=== PATIENT | male | born 1980 ===

== ENCOUNTER 2017-03-17 17:24 | Emergency (ER) | payer OTHER ==
[2017-03-17 17:50] VITALS: RESP 18
--- NOTE | 2017-03-17 18:28 | C.PDOC ---
History Of Present Illness 36 yo male w/PMHx of alcohol abuse come in for evaluation of epigastric, RUQ pain gradually developed since this AM associated with nausea. Pt sts, pain worse with food intake. Otherwise, pt denies fever, chills, headache, dizziness , CP, SOB, dyspnea, diaphoresis, palpitation, vomiting, diarrhea, back pain, UTI sx, denies alcohol use today. Ambulate to ED for evaluation, not in nay apparent distress. Time Seen by Provider: 03/17/17 18:22 Chief Complaint (Nursing): Abdominal Pain History Per: Patient Onset/Duration Of Symptoms: Gradual Past Medical History Reviewed: Historical Data, Nursing Documentation, Vital Signs Vital Signs: Last Vital Signs Temp 97.6 F 03/17/17 18:32 Pulse 93 H 03/17/17 18:32 Resp 18 03/17/17 18:32 BP 136/76 03/17/17 18:32 Pulse Ox 98 03/17/17 18:35 - Medical History PMH: HTN, Pancreatitis Surgical History: Appendectomy Family History: States: Unknown Family Hx - Social History Hx Tobacco Use: No Hx Alcohol Use: Yes Hx Substance Use: No - Immunization History Hx Tetanus Toxoid Vaccination: No Hx Influenza Vaccination: No Hx Pneumococcal Vaccination: No Review Of Systems Except As Marked, All Systems Reviewed And Found Negative. Constitutional: Negative for: Fever, Chills ENT: Negative for: Throat Pain, Throat Swelling Cardiovascular: Negative for: Chest Pain Respiratory: Negative for: Cough, Shortness of Breath, Wheezing Gastrointestinal: Positive for: Nausea, Abdominal Pain. Negative for: Vomiting , Diarrhea, Melena, Hematochezia, Hematemesis Genitourinary: Negative for: Dysuria Musculoskeletal: Negative for: Neck Pain, Back Pain Skin: Negative for: Rash Neurological: Negative for: Altered Mental Status Physical Exam - Physical Exam Appears: Well, Non-toxic, No Acute Distress Skin: Normal Color, Warm, Dry, No Rash Eye(s): bilateral: PERRL Nose: No Discharge Oral Mucosa: Moist, No Drooling Tongue: Normal Appearing Lips: Normal Appearing Throat: No Drooling Neck: Supple Cardiovascular: Rhythm Regular, No Murmur, No JVD Respiratory: No Stridor, No Wheezing Gastrointestinal/Abdominal: Soft, Tenderness (mod RUQ tenderness, mild epigastric and periumbilical), No Distention, No Guarding, No Rebound Back: No CVA Tenderness Extremity: Normal ROM, No Pedal Edema Neurological/Psych: Oriented x3, Normal Speech ED Course And Treatment - Laboratory Results Result Diagrams: 03/17/17 18:42 O2 Sat by Pulse Oximetry: 98 Pulse Ox Interpretation: Normal Progress Note: Blood work, imaging, sx treatment with hydration order. Case discussed with and sign out for further eval/tx in ED. Disposition - Disposition Disposition Time: 18:35 Condition: STABLE Forms: [employer] (Gibraltarian) - Clinical Impression Clinical Impression: Abdominal pain Physician Patient Turnover Patient Signed Over To: Bib Major Handoff Comments: blood work, imaging, re-eval and dispo
[2017-03-17] MEDS ORDERED: Sodium Chloride 0.9% 1,000 ML IV ONE (18:29)
[2017-03-17 18:46] LABS: BASO % 0.5 % (0.0-2.0); EOS # 0.5 K/uL (0.0-0.7); HEMATOCRIT 39.4 % (35.0-51.0); LYMPH # 1.8 K/uL (1.0-4.3); LYMPH % 21.7 % (20.0-40.0); MEAN CELL VOLUME 94.5 fL (80.0-94.0); MEAN CORPUSCULAR HEMOGLOBIN 32.1 pg (27.0-31.0); MEAN PLATELET VOLUME 7.6 fL (7.2-11.7); MONO # 0.9 K/uL (0.0-0.8); MONO % 11.3 % (0.0-10.0); RED CELL DISTRIBUTION WIDTH 16.4 % (11.5-14.5); WHITE BLOOD COUNT 8.3 K/uL (4.8-10.8)
[2017-03-17 18:50] LABS: URINE BILIRUBIN NEGATIVE (NEGATIVE); URINE BLOOD NEGATIVE (NEGATIVE); URINE COLOR Yellow (YELLOW); URINE GLUCOSE (UA) NORMAL (Normal); URINE KETONE NEGATIVE (NEGATIVE); URINE LEUKOCYTE ESTERASE NEG Leu/uL (Negative); URINE PROTEIN NEGATIVE (NEGATIVE); URINE UROBILINOGEN NORMAL mg/dL (0.2-1.0); WBC URINE < 1 /hpf (0-5)
[2017-03-17 18:55] LABS: INR 1.4
[2017-03-17] MEDS ORDERED: Sodium Chloride 0.9% 1,000 ML ONE (18:55)
[2017-03-17 19:04] LABS: CHLORIDE 105 mmol/L (98-107)
[2017-03-17 19:05] LABS: POTASSIUM 3.5 mmol/L (3.6-5.2); SODIUM 139 mmol/L (132-148)
[2017-03-17 19:07] LABS: AMYLASE 92 U/L (30-110); CARBON DIOXIDE 24 mmol/L (22-30); GFR AFRICAN-AMERICAN > 60
[2017-03-17 19:08] LABS: ALB/GLOB RATIO 0.6 (1.0-2.1); ALKALINE PHOSPHATASE 143 U/L (38-126); ALT/SGPT 50 U/L (21-72); AST/SGOT 98 U/L (17-59); BILIRUBIN,TOTAL 1.4 mg/dL (0.2-1.3); BLOOD UREA NITROGEN 4 mg/dL (9-20); CALCIUM 9.1 mg/dl (8.6-10.4); GLUCOSE,RANDOM 106 mg/dL (75-110); TOTAL PROTEIN 9.4 g/dL (6.3-8.3)
[2017-03-17] MEDS ORDERED: Iohexol 240 (50 ml) ONE (19:08)
[2017-03-17 19:09] LABS: ALCOHOL SERUM 118 mg/dl (0-10)
[2017-03-17] MEDS ORDERED: Iohexol 240 (50 ml) PO ONE (19:15)
[2017-03-17] MEDS ORDERED: Iodixanol 320 mg/ml 150 ml Bottle IV ONE (19:29)
--- NOTE | 2017-03-17 22:22 | CT ---
EXAM: CT Abdomen and Pelvis With Intravenous Contrast CLINICAL HISTORY: 36 years old, male; Pain; Abdominal pain; Localized; Right upper quadrant (ruq); Additional info: Ruq/epigstric pain TECHNIQUE: Axial computed tomography images of the abdomen and pelvis with intravenous contrast. All CT scans at this facility use one or more dose reduction techniques, viz.: automated exposure control; ma/kV adjustment per patient size (including targeted exams where dose is matched to indication; i.e. head); or iterative reconstruction technique. Coronal and sagittal reformatted images were created and reviewed. CONTRAST: 100 mL of visipaque 320 administered intravenously. COMPARISON: No relevant prior studies available. FINDINGS: Lower thorax: RML calcified granuloma. ABDOMEN: Liver: Unremarkable. No mass. Gallbladder and bile ducts: Gallbladder distention. Gallstones. No ductal dilation. Pancreas: No ductal dilation. No mass. Spleen: Borderline splenomegaly. Adrenals: No mass. Kidneys and ureters: No mass. No hydronephrosis. Stomach and bowel: No definite mural thickening. No obstruction. Appendix: Appendectomy. PELVIS: Bladder: Unremarkable. Reproductive: Unremarkable as visualized. ABDOMEN and PELVIS: Intraperitoneal space: No significant fluid collection. No free air. Bones/joints: No acute fracture. Soft tissues: Unremarkable. Vasculature: Unremarkable. No aneurysm. Lymph nodes: No pathologically enlarged lymph nodes. IMPRESSION: 1. Gallbladder distention with cholelithiasis. Suggest ultrasound. 2. Incidental/non-acute findings are described above.
--- NOTE | 2017-03-17 23:19 | US ---
EXAM: US Abdomen Limited, Right Upper Quadrant CLINICAL HISTORY: 36 years old, male; Pain; Abdominal pain; Generalized; Additional info: Gallbladder distention with cholelithiasis on CT. TECHNIQUE: Real-time ultrasound of the right upper quadrant with image documentation. COMPARISON: CT - ABD PELVIS PO IV CONTRAST 2017-03-17 21:16 FINDINGS: Liver: Fatty infiltration. Apparent 3.2 x 3.5 x 3.8 cm slightly hyperechoic lesion about gallbladder fossa. No intrahepatic ductal dilatation. Gallbladder: Distended. Gallstones. No wall thickening. No pericholecystic fluid. No sonographic Medrano's sign. Common bile duct: No dilatation. No stones. Pancreas: Obscured by overlying bowel gas. Right kidney: Normal echogenicity. No hydronephrosis. IMPRESSION: 1. Gallbladder distention with cholelithiasis. Clinical correlation is needed. 2. Hepatic steatosis with questionable mass. Recommend nonemergent MRI.
[2017-03-17 23:45] VITALS: BP 114/71; PULSE 72; TEMP 99; O2SAT 97
== END 2017-03-17 23:45 | disposition home or self-care (01) ==
LOC: C.ER 17:24
DX: K80.20 Calculus of gallbladder without cholecystitis without obstruction (principal); K76.0 Fatty (change of) liver, not elsewhere classified; I10 Essential (primary) hypertension
CPT/HCPCS: 74177; 76705; 80053; 80320; 80324; 80345; 80346; 80349; 80353; 80358; 80361; 81001; 82150; 83690; 83992; 85025; 85610; 85730; 96361; 96374; 96375; 99285; J1885; J2405; J7040; Q9966; Q9967

== ENCOUNTER 2017-06-21 22:58 | Emergency (ER) | payer OTHER ==
[2017-06-21] MEDS ORDERED: Sodium Chloride 0.9% 1,000 ML IV ONE (23:18)
[2017-06-21] MEDS ORDERED: Sodium Chloride 0.9% 1,000 ML ONE (23:29)
[2017-06-21 23:35] LABS: BASO # 0.1 K/uL (0.0-0.2); BASO % 0.6 % (0.0-2.0); EOS # 0.2 K/uL (0.0-0.7); EOS % 2.6 % (0.0-4.0); HEMOGLOBIN 12.1 g/dL (12.0-18.0); LYMPH # 1.8 K/uL (1.0-4.3); MEAN CELL VOLUME 93.8 fL (80.0-94.0); MEAN CORPUSCULAR HEMOGLOBIN 32.4 pg (27.0-31.0); MEAN CORPUSCULAR HGB CONC 34.6 g/dL (33.0-37.0); MEAN PLATELET VOLUME 7.3 fL (7.2-11.7); MONO # 1.1 K/uL (0.0-0.8); MONO % 12.4 % (0.0-10.0); NEUT # 5.8 K/uL (1.8-7.0); NEUT % 64.4 % (50.0-75.0); NRBC % 0.1 % (0.0-2.0); RBC 3.72 Mil/uL (4.40-5.90); RED CELL DISTRIBUTION WIDTH 15.1 % (11.5-14.5)
[2017-06-21 23:37] LABS: SQUAMOUS EPITHIAL < 1 /hpf (0-5); URINE BACTERIA RARE (<OCC); URINE BILIRUBIN NEGATIVE (NEGATIVE); URINE BLOOD NEGATIVE (NEGATIVE); URINE CLARITY Clear (Clear); URINE COLOR Yellow (YELLOW); URINE GLUCOSE (UA) NORMAL (Normal); URINE LEUKOCYTE ESTERASE NEG Leu/uL (Negative); URINE NITRATE NEGATIVE (NEGATIVE); URINE PROTEIN NEGATIVE (NEGATIVE)
[2017-06-21 23:45] LABS: ALB/GLOB RATIO 0.7 (1.0-2.1); ALBUMIN 3.5 g/dL (3.5-5.0); ALT/SGPT 48 U/L (21-72); AST/SGOT 84 U/L (17-59); BLOOD UREA NITROGEN 7 mg/dL (9-20); CALCIUM 8.6 mg/dl (8.6-10.4); GFR AFRICAN-AMERICAN > 60; GFR NON-AFRICAN AMERICAN > 60; LIPASE 337 U/L (23-300)
[2017-06-21 23:49] LABS: BARBITURATES, UR NEGATIVE (NEGATIVE); BENZODIAZEPINES, UR NEGATIVE (NEGATIVE); OPIATES, UR NEGATIVE (NEGATIVE); PHENCYCLIDINE, UR NEGATIVE (NEGATIVE)
--- NOTE | 2017-06-22 00:21 | C.PDOC ---
History Of Present Illness 36 year old male presents to the ER with a complaint of epigastic pain since this morning. Patient admits to persistent ETOH use; he has a Hx of gastritis, GI ulcers, and pancreatitis. Surgical Hx is positive for appendectomy. Denies fever, chills, nausea, or vomiting. Time Seen by Provider: 06/21/17 23:06 Chief Complaint (Nursing): Abdominal Pain History Per: Patient History/Exam Limitations: no limitations Onset/Duration Of Symptoms: Hrs Current Symptoms Are (Timing): Still Present Location Of Pain/Discomfort: Epigastric Radiation Of Pain To:: None Quality Of Discomfort: Unable To Describe Associated Symptoms: denies: Fever, Chills, Nausea, Vomiting Exacerbating Factors: None Alleviating Factors: None Recent travel outside of the [place]: No Past Medical History Reviewed: Historical Data, Nursing Documentation, Vital Signs Vital Signs: Last Vital Signs Temp 98.2 F 06/21/17 23:02 Pulse 103 H 06/21/17 23:02 Resp 18 06/21/17 23:02 BP 134/71 06/21/17 23:02 Pulse Ox 98 06/22/17 00:24 - Medical History PMH: Gastritis, Gastrointestinal Ulcer, HTN, Pancreatitis Surgical History: Appendectomy Family History: States: Unknown Family Hx - Social History Hx Tobacco Use: No Hx Alcohol Use: Yes Hx Substance Use: No - Immunization History Hx Tetanus Toxoid Vaccination: No Hx Influenza Vaccination: No Hx Pneumococcal Vaccination: No Review Of Systems Constitutional: Negative for: Fever, Chills, Weight loss Cardiovascular: Negative for: Chest Pain, Palpitations Respiratory: Negative for: Shortness of Breath Gastrointestinal: Positive for: Abdominal Pain. Negative for: Nausea, Vomiting Physical Exam - Physical Exam Appears: Non-toxic, Other (Mild intoxication) Skin: Normal Color, Warm, Dry Head: Atraumatic, Normacephalic Eye(s): bilateral: Normal Inspection Oral Mucosa: Moist Chest: Symmetrical, No Tenderness Cardiovascular: Rhythm Regular Respiratory: Normal Breath Sounds, No Rales, No Rhonchi, No Wheezing Gastrointestinal/Abdominal: Soft, Tenderness (Epigastrum), Distention (Mild), No Guarding, No Rebound Neurological/Psych: Oriented x3, Normal Speech, Other (No focal deficits) ED Course And Treatment - Laboratory Results Result Diagrams: 06/21/17 23:30 06/21/17 23:30 Lab Interpretation: Abnormal (etoh 45 mild elev, Lipase 337 H, bili normal, tox + cocaine) O2 Sat by Pulse Oximetry: 98 Pulse Ox Interpretation: Normal - Radiology CXR: Interpreted by Me CXR Interpretation: Yes: No Acute Disease - Other Rad abd x 2 X-Ray: Interpreted by Me (+FOS no obst/FA, no panc calcifications.) Progress Note: NS, toradol, pepcid, Reevaluation Time: 00:19 Reassessment Condition: Improved Medical Decision Making Medical Decision Making: chronic alcohol abuse presents our ED since 08/08 w ETOH related issues. mild lipase elevation concerning for pancreatitis vs pancreatitic neoplasm DDX h/o gastritis (? alcoholic gastritis) and ulcers may be concerning for ulcerative erosion into pancreatic area CT pending Tox: cocaine + etoh 45 mild elev Disposition - Disposition Disposition Time: 01:00 Condition: GOOD Forms: [facility] (Danish) - Clinical Impression Clinical Impression: Alcohol abuse, Pancreatitis, Abdominal bloating, Constipation, Cocaine abuse - Scribe Statement The provider has reviewed the documentation as recorded by the Scribe Aly Edmond All medical record entries made by the Scribe were at my direction and personally dictated by me. I have reviewed the chart and agree that the record accurately reflects my personal performance of the history, physical exam, medical decision making, and the department course for this patient. I have also personally directed, reviewed, and agree with the discharge instructions and disposition. Physician Patient Turnover Patient Signed Over To: Emmanuel Brennan Handoff Comments: f/u CT abd and dispo appropriately.
[2017-06-22] MEDS ORDERED: Iodixanol 320 MG/ML 100 ML BOTTLE IV ONE (00:59)
--- NOTE | 2017-06-22 01:59 | CT ---
EXAM: CT Abdomen and Pelvis With Intravenous Contrast CLINICAL HISTORY: 36 years old, male; Pain; Abdominal pain; Epigastric; Additional info: Epigastric- alcohol/pancreatitis TECHNIQUE: Axial computed tomography images of the abdomen and pelvis with intravenous contrast. All CT scans at this facility use one or more dose reduction techniques, viz.: automated exposure control; ma/kV adjustment per patient size (including targeted exams where dose is matched to indication; i.e. head); or iterative reconstruction technique. 633 images are submitted. Coronal and sagittal reformatted images were created and reviewed. CONTRAST: 100 mL of [id number] administered intravenously. COMPARISON: No relevant prior studies available. FINDINGS: Lower thorax: There is bibasilar atelectasis. Small hiatal hernia. ABDOMEN: Liver: Fatty possible nodular liver. Gallbladder and bile ducts: Distended gallbladder with gallstones, gallbladder wall prominence and pericholecystic fluid seen on image 53 series 600 and. Correlation with clinical data is recommended to evaluate for acute on chronic cholecystitis. Pancreas: There is minimal haziness of posterior peripancreatic plane and mesentery inferior to the pancreas. Correlation with pancreatic enzymes is recommended if acute pancreatitis is clinically suspected. The anterior fat plane of the pancreas is unremarkable. No ductal dilation. Spleen: Unremarkable. No splenomegaly. Adrenals: Unremarkable. No mass. Kidneys and ureters: Unremarkable. No solid mass. No hydronephrosis. Stomach and bowel: Diverticulosis. Right upper quadrant postoperative changes near the colon. No obstruction. No mucosal thickening. Appendix: The appendix is not seen. Correlation with patient's surgical history is recommended. PELVIS: Bladder: Partially distended bladder with mild bladder wall prominence. Bilateral groin lymph nodes. Correlation with urinalysis is recommended only if clinical cystitis is suspected. Reproductive: Mild enlargement of prostate gland. ABDOMEN and PELVIS: Intraperitoneal space: There is inflammatory change within the root of the mesentery. There are multiple small subcentimeter mesenteric lymph nodes. Mild inhomogeneity of the central mesentery with scattered subcentimeter lymph nodes. --- Nonspecific finding - possible reactive infectious process, mesenteric panniculitis vs. other inflammatory process. No free air. No significant fluid collection. Bones/joints: No acute fracture. No dislocation. Soft tissues: Unremarkable. Vasculature: Unremarkable. No abdominal aortic aneurysm. Lymph nodes: Subcentimeter mesenteric lymph nodes. Other findings: Right mid lobe calcified granuloma. IMPRESSION: 1. Distended gallbladder with gallstones, gallbladder wall prominence and pericholecystic fluid seen on image 53 series 600 and. Correlation with clinical data is recommended to evaluate for acute on chronic cholecystitis. Correlation with LFTs is recommended. 2. There is minimal haziness of posterior peripancreatic plane and mesentery inferior to the pancreas. Correlation with pancreatic enzymes is recommended if acute pancreatitis is clinically suspected.
[2017-06-22] MEDS ORDERED: Ciprofloxacin 400mg/200ml D5W 400 MG/200 ML BAG IVPB STA (02:22)
[2017-06-22] MEDS ORDERED: metroNIDAZOLE IV 500 mg/100 ml 500 MG/100 ML BAG IVPB SCH (02:30)
[2017-06-22] MEDS ORDERED: metroNIDAZOLE IV 500 mg/100 ml 500 MG/100 ML BAG ONE (02:30)
--- NOTE | 2017-06-22 04:39 | CP.PCM.DIS ---
Provider - Provider Date of Admission: 06/22/17 01:47 Attending physician: Adrian Tabor MD Time Spent in preparation of Discharge (in minutes): 30 Diagnosis - Discharge Diagnosis (1) Left against medical advice Status: Acute Hospital Course - Lab Results Lab Results: Most Recent Lab Values WBC 9.0 K/uL (4.8-10.8) 06/21/17 23:30 RBC 3.72 Mil/uL (4.40-5.90) L 06/21/17 23:30 Hgb 12.1 g/dL (12.0-18.0) 06/21/17 23:30 Hct 34.9 % (35.0-51.0) L 06/21/17 23:30 MCV 93.8 fL (80.0-94.0) 06/21/17 23:30 MCH 32.4 pg (27.0-31.0) H 06/21/17 23:30 MCHC 34.6 g/dL (33.0-37.0) 06/21/17 23:30 RDW 15.1 % (11.5-14.5) H 06/21/17 23:30 Plt Count 209 K/uL (130-400) 06/21/17 23:30 MPV 7.3 fL (7.2-11.7) 06/21/17 23:30 Neut % (Auto) 64.4 % (50.0-75.0) 06/21/17 23:30 Lymph % (Auto) 20.0 % (20.0-40.0) 06/21/17 23:30 Steele % (Auto) 12.4 % (0.0-10.0) H 06/21/17 23:30 Eos % (Auto) 2.6 % (0.0-4.0) 06/21/17 23:30 Baso % (Auto) 0.6 % (0.0-2.0) 06/21/17 23:30 Neut # 5.8 K/uL (1.8-7.0) 06/21/17 23:30 Lymph # 1.8 K/uL (1.0-4.3) 06/21/17 23:30 Steele # 1.1 K/uL (0.0-0.8) H 06/21/17 23:30 Eos # 0.2 K/uL (0.0-0.7) 06/21/17 23:30 Baso # 0.1 K/uL (0.0-0.2) 06/21/17 23:30 Sodium 136 mmol/L (132-148) 06/21/17 23:30 Potassium 3.8 mmol/L (3.6-5.2) 06/21/17 23:30 Chloride 102 mmol/L (98-107) 06/21/17 23: Carbon Dioxide 25 mmol/L (22-30) 06/21/17 23: Anion Gap 12 (10-20) 06/21/17:30 BUN 7 mg/dL (9-20) L 06/21/17: Creatinine 0.6 mg/dL (0.8-1.5) L 06/21/17 23:30 Est GFR ( Amer) > 60 06/21/17 23:30 Est GFR (Non-Af Amer) > 60 06/21/17: Random Glucose 115 mg/dL (75-110) H 06/21/17 23: Calcium 8.6 mg/dl (8.6-10.4) 06/21/17 23: Total Bilirubin 1.1 mg/dL (0.2-1.3) 06/21/17:30 AST 84 U/L (17-59) H 06/21/17 23:30 ALT 48 U/L (21-72) 06/21/17 23:30 Alkaline Phosphatase 148 U/L (38-126) H 06/21/17: Total Protein 8.3 g/dL (6.3-8.3) 06/21/17 23: Albumin 3.5 g/dL (3.5-5.0) 06/21/17: Globulin 4.8 gm/dL (2.2-3.9) H 06/21/17 23: Albumin/Globulin Ratio 0.7 (1.0-2.1) L 06/21/17 23:30 Lipase 337 U/L (23-300) H 06/21/17 23:30 Urine Color Yellow (YELLOW) 06/21/17: Urine Clarity Clear (Clear) 01/27/18 23:30 Urine pH 8.0 (5.0-8.0) 06/21/17 23:30 Ur Specific [place] 1.014 (1.003-1.030) 06/21/17 23:30 Urine Protein Negative mg/dL (NEGATIVE) 06/21/17 23:30 Urine Glucose (UA) Normal mg/dL (Normal) 06/21/17 23:30 Urine Ketones Negative mg/dL (NEGATIVE) 06/21/17 23:30 Urine Blood Negative (NEGATIVE) 06/21/17 23:30 Urine Nitrate Negative (NEGATIVE) 06/21/17 23:30 Urine Bilirubin Negative (NEGATIVE) 06/21/17 23:30 Urine Urobilinogen 2.0 mg/dL (0.2-1.0) 06/21/17 23:30 Ur Leukocyte Esterase Neg Viki/uL (Negative) 06/21/17 23:30 Urine WBC (Auto) 1 /hpf (0-5) 06/21/17 23:30 Urine RBC (Auto) 1 /hpf (0-3) 06/21/17 23:30 Ur Squamous Epith Cells < 1 /hpf (0-5) 06/21/17 23:30 Ur Transition Epith Cell < 1 /hpf (0-3) 06/21/17 23:30 Urine Bacteria Rare (<OCC) 06/21/17 23:30 Urine Opiates Screen Negative (NEGATIVE) 06/21/17 23:30 Urine Methadone Screen Negative (NEGATIVE) 06/21/17 23:30 Ur Barbiturates Screen Negative (NEGATIVE) 06/21/17 23:30 Ur Phencyclidine Scrn Negative (NEGATIVE) 06/21/17 23:30 Ur Amphetamines Screen Negative (NEGATIVE) 06/21/17 23:30 U Benzodiazepines Scrn Negative (NEGATIVE) 06/21/17 23:30 U Oth Cocaine Metabols Positive (NEGATIVE) H 06/21/17 23:30 U Cannabinoids Screen Negative (NEGATIVE) 06/21/17 23:30 Alcohol, Quantitative 45 mg/dl (0-10) H 06/21/17 23:30 - Hospital Course Hospital Course: Please see History and Physical for more details. Patient signed AMA after soon arriving on the medical floor. Discharge Exam - Additional Findings Additional findings: Please see H&P for physical exam. Discharge Plan - Follow Up Plan Condition: UNKNOWN Disposition: AGAINST MEDICAL ADVICE
--- NOTE | 2017-06-22 04:39 | CP.PCM.HP ---
History of Present Illness - History of Present Illness History of Present Illness: PGY-[address] H&P [address] Tabor CC: Abdominal pain This is a 36 year old male with PMHx gastritis, ulcers who presents complaining of abdominal pain. It began this morning and has been intermittent since then. It is located in the epigastric region with diffuse radiation throughout the abdomen. Patient states that eating makes the pain worse. Pain is improved with the Toradol given in the ED. Patient is intermittently nauseous. Denies vomiting , constipation, diarrhea. PMHx: Gastritis, Ulcers PSHx: Appendectomy in 2008 Allergies: PCN-rash, angioedema Social: Former smoker, quit 2 months ago. Smoked 1 ppd for 6 years. Former alcoholic, quit 4 months ago. Used to drink daily. Drank yesterday for the first time since then. Denies drugs, though was found cocaine positive in UDS. Family Hx: Denies PMD: Denies Home meds: Denies Present on Admission - Present on Admission Any Indicators Present on Admission: No Review of Systems - Constitutional Constitutional: absent: Chills, Fever - EENT Eyes: absent: Change in Vision Ears: absent: Decreased Hearing Nose/Mouth/Throat: absent: Nasal Congestion - Cardiovascular Cardiovascular: absent: Chest Pain - Respiratory Respiratory: absent: Dyspnea - Gastrointestinal Gastrointestinal: Abdominal Pain, Nausea. absent: Constipation, Diarrhea, Vomiting - Genitourinary Genitourinary: absent: Dysuria - Musculoskeletal Musculoskeletal: absent: Back Pain - Integumentary Integumentary: absent: Rash - Neurological Neurological: absent: Weakness - Psychiatric Psychiatric: absent: Change in Appetite - Endocrine Endocrine: absent: Palpitations Past Patient History - Infectious Disease Hx of Infectious Diseases: None - Past Social History Smoking Status: Light Smoker < 10 Cigarettes Daily - CARDIAC Hx Hypertension: Yes - PULMONARY Hx Respiratory Disorders: No - NEUROLOGICAL Hx Neurological Disorder: No - HEENT Hx HEENT Problems: No - RENAL Hx Chronic Kidney Disease: No - ENDOCRINE/METABOLIC Hx Endocrine Disorders: No - HEMATOLOGICAL/ONCOLOGICAL Hx Blood Disorders: No - INTEGUMENTARY Hx Dermatological Problems: No - MUSCULOSKELETAL/RHEUMATOLOGICAL Hx Musculoskeletal Disorders: No - GASTROINTESTINAL Hx Gastritis: Yes Hx Pancreatitis: Yes - GENITOURINARY/GYNECOLOGICAL Hx Genitourinary Disorders: No - PSYCHIATRIC Hx Substance Use: No - SURGICAL HISTORY Hx Appendectomy: Yes - ANESTHESIA Hx Anesthesia: Yes Meds Allergies/Adverse Reactions: Allergies Allergy/AdvReac Type Severity Reaction Status Date / Time Penicillins Allergy Intermediate ITCHING Verified 06/21/17 23:04 Physical Exam - Constitutional Appears: No Acute Distress - Head Exam Head Exam: ATRAUMATIC, NORMOCEPHALIC - Eye Exam Eye Exam: EOMI, PERRL - ENT Exam ENT Exam: Mucous Membranes Moist - Respiratory Exam Respiratory Exam: Clear to Auscultation Bilateral, NORMAL BREATHING PATTERN. absent: Rales, Rhonchi, Wheezes - Cardiovascular Exam Cardiovascular Exam: REGULAR RHYTHM, +S1, +S2 - GI/Abdominal Exam GI & Abdominal Exam: Guarding, Normal Bowel Sounds, Soft, Tenderness ( epigastric and RUQ tenderness). absent: Distended Additional comments: Positive Medrano's sign - Extremities Exam Extremities exam: Positive for: pedal pulses present. Negative for: pedal edema , tenderness - Neurological Exam Neurological exam: Alert, CN II-XII Intact, Oriented x3 - Psychiatric Exam Psychiatric exam: Normal Affect, Normal Mood - Skin Skin Exam: Dry, Warm Results - Vital Signs Recent Vital Signs: Last Vital Signs Temp 98.2 F 06/22/17 03:45 Pulse 97 H 06/22/17 03:45 Resp 18 06/22/17 03:45 BP 122/64 06/22/17 03:45 Pulse Ox 97 06/22/17 03:45 - Labs Result Diagrams: 06/21/17 23:30 06/21/17 23:30 Labs: Laboratory Results - last 24 hr 06/21/17 06/21/17 06/21/17 23:30 23:30 23:30 WBC 9.0 RBC 3.72 L Hgb 12.1 Hct 34.9 L MCV 93.8 MCH 32.4 H MCHC 34.6 RDW 15.1 H Plt Count 209 MPV 7.3 Neut % (Auto) 64.4 Lymph % (Auto) 20.0 Posey % (Auto) 12.4 H Eos % (Auto) 2.6 Baso % (Auto) 0.6 Neut # 5.8 Lymph # 1.8 Posey # 1.1 H Eos # 0.2 Baso # 0.1 Sodium 136 Potassium 3.8 Chloride 102 Carbon Dioxide 25 Anion Gap 12 BUN 7 L Creatinine 0.6 L Est GFR ( Amer) > 60 Est GFR (Non-Af Amer) > 60 Random Glucose 115 H Calcium 8.6 Total Bilirubin 1.1 AST 84 H ALT 48 Alkaline Phosphatase 148 H Total Protein 8.3 Albumin 3.5 Globulin 4.8 H Albumin/Globulin Ratio 0.7 L Lipase 337 H Urine Color Yellow Urine Clarity Clear Urine pH 8.0 Ur Specific [place] 1.014 Urine Protein Negative Urine Glucose (UA) Normal Urine Ketones Negative Urine Blood Negative Urine Nitrate Negative Urine Bilirubin Negative Urine Urobilinogen 2.0 Ur Leukocyte Esterase Neg Urine WBC (Auto) 1 Urine RBC (Auto) 1 Ur Squamous Epith Cells < 1 Ur Transition Epith Cell < 1 Urine Bacteria Rare Urine Opiates Screen Urine Methadone Screen Ur Barbiturates Screen Ur Phencyclidine Scrn Ur Amphetamines Screen U Benzodiazepines Scrn U Oth Cocaine Metabols U Cannabinoids Screen Alcohol, Quantitative 45 H 06/21/17 23:30 WBC RBC Hgb Hct MCV MCH MCHC RDW Plt Count MPV Neut % (Auto) Lymph % (Auto) Posey % (Auto) Eos % (Auto) Baso % (Auto) Neut # Lymph # [place]osey # Eos # Baso # Sodium Potassium Chloride Carbon Dioxide Anion Gap BUN Creatinine Est GFR ( Amer) Est GFR (Non-Af Amer) Random Glucose Calcium Total Bilirubin AST ALT Alkaline Phosphatase Total Protein Albumin Globulin Albumin/Globulin Ratio Lipase Urine Color Urine Clarity Urine pH Ur Specific [place] Urine Protein Urine Glucose (UA) Urine Ketones Urine Blood Urine Nitrate Urine Bilirubin Urine Urobilinogen Ur Leukocyte Esterase Urine WBC (Auto) Urine RBC (Auto) Ur Squamous Epith Cells Ur Transition Epith Cell Urine Bacteria Urine Opiates Screen Negative Urine Methadone Screen Negative Ur Barbiturates Screen Negative Ur Phencyclidine Scrn Negative Ur Amphetamines Screen Negative U Benzodiazepines Scrn Negative U Oth Cocaine Metabols Positive H U Cannabinoids Screen Negative Alcohol, Quantitative Assessment & Plan - Assessment and Plan (Free Text) Plan: The patient declined to stay in the hospital and wished to leave after being admitted and arriving on the floors. This action was against my medical advice. This decision was made with informed refusal. The patient was told that remaining in the hospital for further testing and treatment was necessary. Explanation of the reasons why were discussed, but the patient still wished to leave stating that he felt better after the antibiotics and pain medication that he received in the ED. The risks of leaving were explained to the patient and include, but are not limited to, worsening of known or currently unknown conditions, permanent disability and from undiagnosed or untreated conditions. The patient has the capacity to make this informed decision and understands my explanation of the current medical problem and risks of leaving. The patient voluntarily accepts these risks and signed an AMA form documenting our conversation. The patient was given the opportunity to ask questions and reconsider. The patient was encouraged to return to the Emergency Department at any time for further care.
[2017-06-22 04:42] VITALS: BP 120/62; PULSE 99; RESP 20; TEMP 98.4; O2SAT 100
--- NOTE | 2017-06-22 07:13 | RAD ---
Abdomen four views History: Abdominal pain. Comparison: None available. Findings: Lung hernandez are clear. Heart size within normal limits. Relative paucity of small bowel gas. Moderate fecal retention in the colon. Safety pin projects over the lower pelvis possibly external. Clinical correlation. Few radiopaque calcifications project over the right upper abdomen. Clinical correlation. Impression: Nonspecific bowel gas pattern with moderate fecal retention in the colon. Relative paucity of small bowel gas. Clinical correlation. Few radiopaque calcifications project over the right upper abdomen. Clinical correlation.
== END 2017-06-22 05:10 | disposition left against medical advice (07) ==
LOC: C.ER 22:58 → UNDOADMIN 06-22 01:47 → C.3T 06-22 01:47 → C.ER 06-22 05:10 → UNDODISIN 06-22 05:10
DX: K85.90 Acute pancreatitis without necrosis or infection, unspecified (principal); K59.00 Constipation, unspecified; F10.10 Alcohol abuse, uncomplicated; F14.10 Cocaine abuse, uncomplicated; R14.0 Abdominal distension (gaseous); I10 Essential (primary) hypertension; Z87.891 Personal history of nicotine dependence
CPT/HCPCS: 74022; 74177; 80053; 80320; 80324; 80345; 80346; 80349; 80353; 80358; 80361; 81001; 83690; 83992; 85025; 96361; 96365; 96366; 96367; 96375; 99285; J0744; J1885; J7040; Q9967

== ENCOUNTER 2017-07-01 08:17 | Emergency (ER) | payer OTHER ==
[2017-07-01 08:38] VITALS: BMI 34.3
--- NOTE | 2017-07-01 09:36 | C.PDOC ---
History Of Present Illness 36-year-old male, presents to the emergency department with complaints of right sided abdominal pain s/p laproscopic cholecystectomy at [facility] [place] four days ago. Patient comes in complaining of redness and swelling x2 days. Patient is taking pain medications, and notes associated nausea. Additionally, patient notes he has not had a normal bowel movement in two days. Patient denies vomiting, shortness of breath, or any other associated symptoms. No other complaints at this time. Chief Complaint (Nursing): Abdominal Pain History Per: Patient History/Exam Limitations: no limitations Onset/Duration Of Symptoms: Days Past Medical History Reviewed: Historical Data, Nursing Documentation, Vital Signs Vital Signs: Last Vital Signs Temp 97.6 F 07/01/17 13:40 Pulse 64 07/01/17 13:40 Resp 20 07/01/17 13:40 BP 105/63 07/01/17 13:40 Pulse Ox 100 07/01/17 13:40 - Medical History PMH: Gastritis, Gastrointestinal Ulcer, Pancreatitis Denies: HTN (PT DENIES) Surgical History: Appendectomy, Cholecystectomy (06/27/17) Family History: States: No Known Family Hx - Social History Hx Tobacco Use: No Hx Alcohol Use: No (PT STATES "I STOPPED 3 MONTHS AGO") Hx Substance Use: No - Immunization History Hx Tetanus Toxoid Vaccination: No Hx Influenza Vaccination: No Hx Pneumococcal Vaccination: No Review Of Systems Except As Marked, All Systems Reviewed And Found Negative. Constitutional: Negative for: Fever, Chills Cardiovascular: Negative for: Chest Pain Respiratory: Negative for: Shortness of Breath Gastrointestinal: Positive for: Nausea, Abdominal Pain. Negative for: Vomiting Musculoskeletal: Positive for: Back Pain Neurological: Negative for: Weakness, Numbness, Headache, Dizziness Physical Exam - Physical Exam Appears: Non-toxic, No Acute Distress Skin: Warm, Dry, No Rash, Other Head: Atraumatic, Normacephalic Eye(s): bilateral: Normal Inspection Nose: Normal Oral Mucosa: Moist Lips: Normal Appearing Neck: Normal ROM Chest: Symmetrical Cardiovascular: Rhythm Regular, No Murmur Respiratory: Normal Breath Sounds, No Accessory Muscle Use Gastrointestinal/Abdominal: Other (echymosis RUQ) Back: Other (markedly tender in right flnk with echymosis to the area with induration to incision site) Extremity: Normal ROM Neurological/Psych: Oriented x3, Normal Speech ED Course And Treatment - Laboratory Results Result Diagrams: 07/01/17 10:05 07/01/17 10:05 Medical Decision Making Medical Decision Making: Plan: * Labs * CT Abd/Pel * Zofran, Morphine * Influenza AB * UA * Reassess and Disposition Disposition - Disposition Disposition: HOME/ ROUTINE Disposition Time: 13:21 Condition: FAIR Instructions: Abdominal Pain (ED) Forms: [facility] (Venezuelan), Gen Discharge Inst Azeri Print Language: AFGHAN - Clinical Impression Clinical Impression: Abdominal wall pain, Post-operative pain - Scribe Statement The provider has reviewed the documentation as recorded by the Scribe (Juan Adams) All medical record entries made by the Scribe were at my direction and personally dictated by me. I have reviewed the chart and agree that the record accurately reflects my personal performance of the history, physical exam, medical decision making, and the department course for this patient. I have also personally directed, reviewed, and agree with the discharge instructions and disposition.
[2017-07-01] MEDS ORDERED: Morphine 4 MG/ML VIAL IV ONE (09:49)
[2017-07-01] MEDS ORDERED: Morphine 4 MG/ML VIAL ONE (10:08)
[2017-07-01 10:11] LABS: BASO # 0.1 K/uL (0.0-0.2); BASO % 0.6 % (0.0-2.0); EOS # 0.9 K/uL (0.0-0.7); EOS % 10.3 % (0.0-4.0); HEMOGLOBIN 11.6 g/dL (12.0-18.0); LYMPH # 2.4 K/uL (1.0-4.3); MEAN CELL VOLUME 95.3 fL (80.0-94.0); MEAN CORPUSCULAR HGB CONC 34.6 g/dL (33.0-37.0); MEAN PLATELET VOLUME 7.4 fL (7.2-11.7); MONO # 1.2 K/uL (0.0-0.8); MONO % 13.8 % (0.0-10.0); NEUT # 4.2 K/uL (1.8-7.0); NEUT % 48.3 % (50.0-75.0); RBC 3.53 Mil/uL (4.40-5.90); RED CELL DISTRIBUTION WIDTH 15.9 % (11.5-14.5); WHITE BLOOD COUNT 8.8 K/uL (4.8-10.8)
--- NOTE | 2017-07-01 10:16 | RAD ---
HISTORY: SOB COMPARISON: Chest x-ray portion obstructive series performed 06/21/17. TECHNIQUE: Chest PA and lateral FINDINGS: Examination by habitus and hypoinflation. LUNGS: No focal consolidation. Please note that chest x-ray has limited sensitivity for the detection of pulmonary masses. PLEURA: No significant pleural effusion identified. No definite pneumothorax . CARDIOVASCULAR: Heart size appears within normal limits. OSSEOUS STRUCTURES: No acute osseous abnormality identified. VISUALIZED UPPER ABDOMEN: Mild elevation of the right hemidiaphragm. OTHER FINDINGS: None. IMPRESSION: No acute findings identified.
[2017-07-01 10:41] LABS: ALB/GLOB RATIO 0.7 (1.0-2.1); ALBUMIN 2.8 g/dL (3.5-5.0); ALT/SGPT 48 U/L (21-72); AST/SGOT 64 U/L (17-59); BLOOD UREA NITROGEN 7 mg/dL (9-20); CALCIUM 8.5 mg/dl (8.6-10.4); GFR AFRICAN-AMERICAN > 60; GFR NON-AFRICAN AMERICAN > 60
[2017-07-01] MEDS ORDERED: Iodixanol 320 MG/ML 100 ML BOTTLE IV ONE (10:55)
--- NOTE | 2017-07-01 12:08 | CT ---
PROCEDURE: CT Abdomen and Pelvis with contrast HISTORY: pain s/p andrea COMPARISON: CT abdomen and pelvis with IV contrast performed 06/22/17 TECHNIQUE: Contrast dose: 100 mL Visipaque IV Radiation dose: Total exam DLP = 754.80 mGy-cm. This CT exam was performed using one or more of the following dose reduction techniques: Automated exposure control, adjustment of the mA and/or kV according to patient size, and/or use of iterative reconstruction technique. FINDINGS: LOWER THORAX: 6 mm right lower lobe calcified granuloma. Subtle ground-glass opacities bilateral lung bases may reflect edema or infiltrate. Trace right pleural effusion. Small hiatal hernia. LIVER: Mildly nodular hepatic contour. GALLBLADDER AND BILE DUCTS: Small fluid/inflammatory stranding at cholecystectomy site. PANCREAS: Mild adjacent mesenteric inflammatory changes. The pancreas demonstrates unremarkable unenhanced appearance. SPLEEN: Unremarkable unenhanced appearance. ADRENALS: Unremarkable unenhanced appearance. KIDNEYS AND URETERS: The kidneys enhance symmetrically. No hydronephrosis or obstructing calculus identified. VASCULATURE: No aortic aneurysm. BOWEL: Stomach is nondistended. Lack of oral contrast limits evaluation for bowel pathology. Bowel loops appear within normal limits of caliber without evidence of obstruction. Diverticulosis without CT evidence of acute diverticulitis. APPENDIX: The appendix is not identified. Surgical clips near the cecum likely related to a appendectomy. Correlate with surgical history. No secondary signs of acute appendicitis identified. PERITONEUM: Mild mesenteric edema. Small pelvic free fluid. No definite free air. LYMPH NODES: Prominent sub cm mesenteric lymph nodes, nonspecific. BLADDER: Unremarkable. REPRODUCTIVE: Unremarkable. BONES: No acute osseous abnormality is detected. OTHER FINDINGS: None. IMPRESSION: Mild mesenteric inflammatory stranding. Pancreatitis cannot be entirely excluded. Recommend correlation with amylase and lipase. Mild nodularity of the hepatic contour. Diverticulosis without CT evidence of acute diverticulitis. Small fluid and stranding noted within the cholecystectomy site. Prominent but sub cm mesenteric lymph nodes and associated inflammatory changes. Correlate clinically. 6 mm right lower lobe calcified granuloma. Subtle ground-glass opacities bilateral lung bases may reflect edema or infiltrate. Trace right pleural effusion. Additional findings as above.
[2017-07-01 13:17] LABS: LIPASE 180 U/L (23-300)
[2017-07-01 13:41] VITALS: BP 105/63; PULSE 64; RESP 20; TEMP 97.6; O2SAT 100
== END 2017-07-01 13:43 | disposition home or self-care (01) ==
LOC: C.ER 08:17
DX: G89.18 Other acute postprocedural pain (principal); R10.11 Right upper quadrant pain
CPT/HCPCS: 71046; 74177; 80053; 83690; 85025; 96374; 96375; 99285; J2270; J2405; Q9967

== ENCOUNTER 2018-09-24 17:19 | Emergency (ER) | payer OTHER ==
[2018-09-24 17:19] VITALS: BMI 34.3
[2018-09-24 17:38] VITALS: RESP 18
--- NOTE | 2018-09-24 17:43 | C.PDOC ---
History Of Present Illness Patient is a 38 year old male, with a PMHx of gastritis, pancreatitis, gastric ulcer, appendectomy, and alcohol abuse, who presents to the ED c/o RUQ pain for the past 3 days with associated coffee ground emesis. He describes the pain as throbbing and notes that he drank yesterday with worsened his pain. He has not taken any medications for his pain. No rash. Patient denies any fever, chills, night sweats, weakness, dark or blood in stools, diarrhea, constipation, falls, or trauma. He denies any fall or trauma. No penile or testicular pain. Time Seen by Provider: 09/24/18 17:33 Chief Complaint (Nursing): Abdominal Pain History Per: Patient History/Exam Limitations: no limitations Past Medical History Reviewed: Historical Data, Nursing Documentation, Vital Signs Vital Signs: Last Vital Signs Temp 98.8 F 09/24/18 17:36 Pulse 102 H 09/24/18 17:36 Resp 18 09/24/18 17:36 BP 146/75 09/24/18 17:36 Pulse Ox 96 09/24/18 17:36 Primary Care Provider: FAMILY PROVIDER,NO - Medical History PMH: Gastritis, Gastrointestinal Ulcer, Pancreatitis Denies: HTN (PT DENIES), Chronic Kidney Disease Surgical History: Appendectomy, Cholecystectomy (06/27/17) Family History: States: Unknown Family Hx - Social History Hx Tobacco Use: No Hx Alcohol Use: No (PT STATES "I STOPPED 3 MONTHS AGO") Hx Substance Use: No - Immunization History Hx Tetanus Toxoid Vaccination: No Hx Influenza Vaccination: No Hx Pneumococcal Vaccination: No Review Of Systems Constitutional: Negative for: Fever, Chills, Sweats, Weakness, Malaise Eyes: Negative for: Pain, Vision Change ENT: Negative for: Ear Pain, Ear Discharge, Nose Pain Cardiovascular: Negative for: Chest Pain, Palpitations, Edema Respiratory: Negative for: Cough, Shortness of Breath Gastrointestinal: Positive for: Abdominal Pain. Negative for: Diarrhea, Constipation, Melena, Rectal Pain Genitourinary: Negative for: Dysuria, Frequency, Incontinence, Hematuria, Penile Discharge, Scrotal Pain, Rash, Penile Pain Musculoskeletal: Negative for: Neck Pain, Shoulder Pain, Arm Pain, Back Pain, Hand Pain Skin: Negative for: Rash, Lesions Neurological: Negative for: Weakness, Numbness Psych: Negative for: Anxiety, Depression Physical Exam - Physical Exam Appears: Well, Non-toxic, No Acute Distress Skin: Warm, Dry Head: Atraumatic, Normacephalic Eye(s): bilateral: Normal Inspection, PERRL, EOMI Ear(s): Bilateral: Normal Nose: Normal Oral Mucosa: Moist Throat: Normal, No Erythema, No Exudate Neck: Normal, Normal ROM, Trachea Midline, No Midline Cervical Tenderness, Supple, Other (No meningeal signs- negative kernig's and brudzinskis) Chest: Symmetrical Cardiovascular: Rhythm Regular, No Friction Rub, No Murmur, No JVD Respiratory: No Rales, No Rhonchi, No Wheezing Gastrointestinal/Abdominal: Soft, Tenderness (RUQ tenderness), No Distention, No Guarding, No Rebound, No Hernia Back: Normal Inspection, No CVA Tenderness, No Vertebral Tenderness, No Decreased ROM Extremity: Normal ROM, No Tenderness, Other (n/v intact in all extremities ) Extremity: Bilateral: Atraumatic, Normal Color And Temperature Pulses: Left Dorsalis Pedis: Normal, Right Dorsalis Pedis: Normal DTR: Ankle (R): 0, Ankle (L): 0 Neurological/Psych: Oriented x3, Normal Speech, Normal Cognition, Normal Cranial Nerves, No Cerebellar Signs, Normal Motor Gait: Steady ED Course And Treatment - Laboratory Results Result Diagrams: 09/24/18 18:08 09/24/18 18:08 O2 Sat by Pulse Oximetry: 96 (on RA) Pulse Ox Interpretation: Normal - CT Scan/US US Gallbladder Other Rad Studies (CT/US): Read By Radiologist, Radiology Report Reviewed CT/US Interpretation: History. RUQ pain. Comparison. None. Technique. Sonographic evaluation of the right upper quadrant of the abdomen. Findings. Liver. Measures 18.7 cm in length. Increased echogenicity of the liver parenchyma with nodular contour. No mass. No intrahepatic bile duct dilatation. Gallbladder. The patient is status post cholecystectomy. Common bile duct. Measures 5.5 mm. No stones. No dilatation. Pancreas. Not visualized. Right kidney. Measures 12.8 x 6.4 x 5.6 cm in length. Normal echogenicity. No calculus, mass, or hydronephrosis. Aorta. No aneurysmal dilatation. IVC. Unremarkable. Other Findings. None. Impression. 1. Increased liver echogenicity with nodular contour. Please exclude hepatocellular disease clinically. 2. The patient is status post cholecystectomy. . Electronically signed on September 24, 2018 7:55:20 PM EDT by: Jaswant Isidro M.D., M.B.A., Certified By [employer]. Fellowship Trained MRI and CT Specialist. Medical Decision Making Medical Decision Making: Patient is a 38 year old male, with a PMHx of gastritis, pancreatitis, gastric ulcer, appendectomy, and alcohol abuse, who presents to the ED c/o RUQ pain for the past 3 days with associated coffee ground emesis. No fall or trauma. No chest pain or shortness of breath. No urinary complaints. No headache, fever, chills or night sweats. Pt notes recent drinking associated w/ abd pain. No dark or bloody stool. Plan: Labs CXR Pepcid 20mg IVP IV Fluids US Gallbladder Impression: Pancreatitis vs. gastritis vs. ulcer 2044 labs largely unremarkable US largely unremarkable pt informs no that he has had a lap choley. Likely gastric ulcer vs gastritis no peritoneal signs or guarding, repeat abd exam unremarkable, now non-ttp endorsed to pt to decrease etoh use, follow up with GI regarding further imaging regarding hepatocellular disease. He is agreeable to plan. Disposition - Disposition Referrals: Tavo Bean MD [Staff Provider] - [facility] [Outside] [facility] [Outside] [facility] [Outside] Disposition: HOME/ ROUTINE Disposition Time: 20:38 Condition: STABLE Additional Instructions: HAYDEE GARRETT, thank you for letting us take care of you today. Your provider was Israel Espinoza and you were treated for STOMACH PAINS/VOMITING. The emergency medical care you received today was directed at your acute symptoms. If you were prescribed any medication, please fill it and take as directed. It may take several days for your symptoms to resolve. Return to the Emergency Department if your symptoms worsen, do not improve, or if you have any other p roblems. Please contact your doctor or call one of the physicians/clinics you have been referred to that are listed on the Patient Visit Information form that is included in your discharge packet. Bring any paperwork you were given at discharge with you along with any medications you are taking to your follow up visit. Our treatment cannot replace ongoing medical care by a primary care provider outside of the emergency department. Thank you for allowing the [facility] team to be part of your care today. If you had an X-Ray or CT scan: A Radiologist will review the ED reading if any change in treatment is needed we will contact you. If you had a blood, urine, or wound culture: It will take several days for the results, if any change in treatment is needed we will contact you. If you had an STI test: It will take 48 hours for the results. Please call after 1 week if you have not heard back. Prescriptions: Pantoprazole Sodium [Protonix] 20 mg PO DAILY 7 Days #7 ect Instructions: Peptic Ulcers (DC), Gastritis (DC) Forms: [facility] (Nepali) - Clinical Impression Clinical Impression: Gastritis, Peptic ulcer - Scribe Statement The provider has reviewed the documentation as recorded by the Cristofer Leiva All medical record entries made by the Jenniferibaldair were at my direction and personally dictated by me. I have reviewed the chart and agree that the record accurately reflects my personal performance of the history, physical exam, medical decision making, and the department course for this patient. I have also personally directed, reviewed, and agree with the discharge instructions and disposition.
[2018-09-24] MEDS ORDERED: Sodium Chloride 0.9% 1,000 ML IV ONE (17:52)
[2018-09-24 18:23] LABS: BASO # 0.1 K/uL (0.0-0.2); EOS # 0.1 K/uL (0.0-0.7); EOS % 1.3 % (0.0-4.0); HEMOGLOBIN 11.3 g/dL (12.0-18.0); LYMPH # 1.2 K/uL (1.0-4.3); LYMPH % 19.3 % (20.0-40.0); MEAN CORPUSCULAR HEMOGLOBIN 29.3 pg (27.0-31.0); MEAN CORPUSCULAR HGB CONC 32.5 g/dL (33.0-37.0); MONO # 1.1 K/uL (0.0-0.8); MONO % 17.6 % (0.0-10.0); NEUT # 3.8 K/uL (1.8-7.0); NEUT % 60.8 % (50.0-75.0); NRBC % 0.1 % (0.0-2.0); RBC 3.87 Mil/uL (4.40-5.90); RED CELL DISTRIBUTION WIDTH 18.6 % (11.5-14.5); WHITE BLOOD COUNT 6.3 K/uL (4.8-10.8)
[2018-09-24 18:33] LABS: BLOOD UREA NITROGEN 13 mg/dL (9-20); GFR NON-AFRICAN AMERICAN > 60
[2018-09-24 18:34] LABS: ALB/GLOB RATIO 0.7 (1.0-2.1); ALBUMIN 3.6 g/dL (3.5-5.0); ALT/SGPT 51 U/L (21-72); AST/SGOT 226 U/L (17-59); CALCIUM 8.7 mg/dl (8.6-10.4); LIPASE 253 U/L (23-300)
[2018-09-24] MEDS ORDERED: Sodium Chloride 0.9% 1,000 ML ONE (19:01)
[2018-09-24 20:54] VITALS: BP 144/77; PULSE 94; TEMP 99.1; O2SAT 98
--- NOTE | 2018-09-24 21:57 | RAD ---
Date of service: 09/24/2018 HISTORY: Abdominal pain. COMPARISON: 07/01/2017. TECHNIQUE: Chest PA and lateral views FINDINGS: LUNGS: No active pulmonary disease. PLEURA: No significant pleural effusion identified. No pneumothorax apparent. CARDIOVASCULAR: No aortic atherosclerotic calcification present. Normal cardiac size. No pulmonary vascular congestion. OSSEOUS STRUCTURES: No significant abnormalities. VISUALIZED UPPER ABDOMEN: Normal. OTHER FINDINGS: None. IMPRESSION: No active disease. No significant interval change compared to the prior examination(s).
--- NOTE | 2018-09-25 09:37 | US ---
Date of service: 09/24/2018 HISTORY: Right upper quadrant pain COMPARISON: CT abdomen and pelvis from 07/01/2017 TECHNIQUE: Sonographic evaluation of the right upper quadrant of the abdomen. FINDINGS: LIVER: Measures 18.7 cm in length. There is diffuse increased echogenicity of the liver parenchyma with nodular contour. No mass. No intrahepatic bile duct dilatation. GALLBLADDER: Surgically absent. COMMON BILE DUCT: Measures 5.5 mm. No stones. No dilatation. PANCREAS: Obscured by bowel gas. RIGHT KIDNEY: Measures 12.8 cm in length. Normal echogenicity. No calculus, mass, or hydronephrosis. AORTA: No aneurysmal dilatation. IVC: Unremarkable. OTHER FINDINGS: None . IMPRESSION: Mild hepatomegaly with nodular contour. Diffuse increased echogenicity in the liver may reflect hepatic steatosis however parenchymal infectious/ inflammatory etiologies cannot be entirely excluded. Clinical and laboratory correlation is advised.
== END 2018-09-24 20:55 | disposition home or self-care (01) ==
LOC: C.ER 17:19
DX: K29.70 Gastritis, unspecified, without bleeding (principal); K27.9 Peptic ulcer, site unspecified, unspecified as acute or chronic, without hemorrhage or perforation
CPT/HCPCS: 71046; 76705; 80053; 83690; 85025; 96361; 96374; 99284; J7030